=== PATIENT | female | born 1965 | race African-American/Black ===

== ENCOUNTER 2017-08-16 18:43 | Emergency (ER) | payer MEDICARE, MEDICAID ==
--- NOTE | 2017-08-16 19:10 | ER Document Report ---
ED Dialysis Cath/Shunt Problem - General Chief Complaint: Shoulder Pain Stated Complaint: GENERAL WEAKNESS Time Seen by Provider: 08/16/17 19:03 Mode of Arrival: Medic Information source: Patient TRAVEL OUTSIDE OF THE [place] IN LAST 30 DAYS: No - HPI Patient complains to provider of: UNCONTROLLED BLEEDING FROM DIALYSIS FISTULA Onset: Just prior to arrival Onset/Duration: Sudden Context: Patient states she finished 3 hours of dialysis treatment without incident, then as she was departing the facility the fistula access site began bleeding. Dialysis clinic staff applied a bandage with pressure clamp and sent patient to the emergency department. Hemo-Dialysis Treatment Today: Yes Associated symptoms: None Exacerbated by: Denies Relieved by: Denies Similar symptoms previously: Yes - NOT RECENT Recently seen / treated by doctor: Yes - Related Data Allergies/Adverse Reactions: aspirin [Aspirin] Allergy (Severe, Verified 10/20/14 19:12) Hives doxycycline [Doxycycline] Allergy (Severe, Verified 10/20/14 19:12) swelling latex [Latex] Allergy (Severe, Verified 10/20/14 19:12) rash NSAIDS (Non-Steroidal Anti-Inflamma [Nsaids] Allergy (Severe, Verified 10/20/14 19:12) Hives Penicillins Allergy (Severe, Verified 10/20/14 19:12) coma x 7 days Sulfa (Sulfonamide Antibiotics) Allergy (Severe, Verified 10/20/14 19:12) swelling Past Medical History - General Information source: Patient - Social History Smoking Status: Unknown if Ever Smoked Cigarette use (# per day): No Chew tobacco use (# tins/day): No Smoking Education Provided: No Frequency of alcohol use: None Drug Abuse: None Lives with: Family Family History: Reviewed & Not Pertinent - Past Medical History Cardiac Medical History: Reports: Hx Atrial Fibrillation, Hx Hypertension - meds 12 yrs Denies: Hx Coronary Artery Disease, Hx Heart Attack Pulmonary Medical History: Reports: Hx Asthma - occas inhaler, Hx Bronchitis, Hx Pneumonia - 2011 Denies: Hx COPD Neurological Medical History: Reports: None. Denies: Hx Cerebrovascular Accident, Hx Seizures Endocrine Medical History: Reports: None Renal/ Medical History: Reports: Hx End Stage Renal Disease, Hx Hemodialysis Malignancy Medical History: Reports: None GI Medical History: Reports: None Musculoskeltal Medical History: Reports Hx Arthritis - rt knee Psychiatric Medical History: Reports: None Past Surgical History: Reports: Hx Vascular Surgery - Immunizations Hx Diphtheria, Pertussis, Tetanus Vaccination: No Hx Pneumococcal Vaccination: 08/08/11 Review of Systems - Review of Systems Constitutional: No symptoms reported EENT: No symptoms reported Cardiovascular: No symptoms reported Respiratory: No symptoms reported Gastrointestinal: No symptoms reported Genitourinary: No symptoms reported Female Genitourinary: Post menopausal Musculoskeletal: No symptoms reported Skin: No symptoms reported Hematologic/Lymphatic: Easy bleeding Neurological/Psychological: No symptoms reported Physical Exam - Vital signs Interpretation: Normal. No: Hypotensive, Tachycardic, Tachypneic - General General appearance: Appears well, Alert In distress: None - HEENT Head: Normocephalic Eyes: Normal Conjunctiva: Normal Ears: Normal Nasal: Normal Mouth/Lips: Normal Mucous membranes: Normal - Respiratory Respiratory status: No respiratory distress - Cardiovascular Rhythm: Irregularly irregular - Abdominal Inspection: Obese - Extremities General upper extremity: No: Normal inspection - SCARS FROM PREVIOUS DIALYSIS FISTULAE, PRESSURE CLAMP/BANDAGE LEFT ARM, BLEEDING RESUMES WHEN PRESSURE IS REMOVED. Arm: Other - DIALYSIS FISTULA BLEEDS PROFUSELY WHEN CLAMP IS RELEASED. RECURRENT BLEEDING AFTER 15 MINUTES CONTINUOUS ONE-FINGER PRESSURE. - Neurological Neuro grossly intact: Yes Cognition: Normal Orientation: AAOx4 - Psychological Associated symptoms: Normal affect, Normal mood - Skin Skin Temperature: Warm Skin Moisture: Dry Skin Color: Normal Skin Turgor: Elastic Course - Consults DR. DURAND Time consulted: 19:18 Consulted provider: will come to ER Discharge - Discharge Clinical Impression: Complication of arteriovenous dialysis fistula Qualifiers: Encounter type: initial encounter Qualified Code(s): T82.9XXA - Unspecified complication of cardiac and vascular prosthetic device, implant and graft, initial encounter Condition: Stable Disposition: HOME, SELF-CARE Additional Instructions: CONTINUE USUAL MEDICATIONS. AVOID EXCESSIVE USE OF LEFT ARM. FOLLOW UP TUESDAY FOR YOUR USUAL DIALYSIS TREATMENT. RETURN TO E.R. IF PROBLEMS.
[2017-08-16] MEDS ORDERED: LIDOCAINE 1% INJ-PF (10 MG/ML) 30 ML SDV INJ ONE (19:19)
--- NOTE | 2017-08-16 20:19 | OPERATIVE REPORT E ---
Operative Report NAME: ÁNGEL COKER : 1965 AGE: 51Y DATE OF SURGERY: 08/16/2017 ROOM: PREOPERATIVE DIAGNOSIS: Bleeding from fistula graft post hemodialysis this afternoon. POSTOPERATIVE DIAGNOSIS: Bleeding from fistula graft post hemodialysis this afternoon. PROCEDURE: Suture ligature of a bleeder from the fistula graft. SURGEON: TANYA DURAND M.D. ANESTHESIA: Local ESTIMATED BLOOD LOSS: About 20 cc. INDICATIONS: This is a 61-year-old female on hemodialysis. She had bleeding from the left upper arm fistula graft after hemodialysis today. The patient came to the ER with a pressure clamp on the bleeder site. DESCRIPTION OF PROCEDURE: The clamp was removed, and there was oozing noted. The left upper arm was then prepped and draped in the usual sterile fashion. Local anesthesia infiltrated along the bleeder site. Next, a couple of sutures using 4-0 nylon were used, but there was still bleeding. Because of this, a 4-0 Prolene suture was asked to be taken from the OR. Meantime, there was gentle pressure on the bleeding area while waiting for the suture. Next, as soon as the suture came, 4-0 Prolene was used to put a [id number] suture on the bleeding area. This stopped the bleeding nicely. A Band-Aid was then placed over the wound site, or bleeder site. The patient tolerated the procedure well. DICTATING PHYSICIAN: TANYA DURAND M.D. [id number] PHY#: [id number] ID: [id number] JOB#: [id number] ACCT: [id number] cc:TANYA DURAND M.D. >
[2017-08-16 20:51] VITALS: BP 145/72
== END 2017-08-16 20:35 | disposition home or self-care (01) ==
LOC: ER 18:43
DX: T82.9XXA Unspecified complication of cardiac and vascular prosthetic device, implant and graft, initial encounter (principal); M25.519 Pain in unspecified shoulder; R53.1 Weakness
CPT/HCPCS: 99284; J3490

== ENCOUNTER → 2017-10-05 | Outpatient (CLI) | payer MEDICARE, MEDICAID ==
--- NOTE | 2017-10-05 17:35 | WOMENS IMAGING REPORT ---
EXAM DESCRIPTION: BILAT DIAGNOSTIC MAMMO W/CAD; U/S BREAST UNILAT LIMITED COMPLETED DATE/TIME: 10/05/2017 9:07 am; 10/05/2017 10:18 am REASON FOR STUDY: UNSPECIFED LUMP; N63.21; BILATERAL BREAST LUMPS N63.10 UNSPECIFIED LUMP IN THE RI GHT BREAST, UNSPECIFIED GENOVEVA N63.20 UNSPECIFIED LUMP IN THE LEFT BREAST, UNSPECIFIED QUAD N63.21 UNS PECIFIED LUMP IN THE LEFT BREAST, UPPER OUTER QUAD COMPARISON: Baseline study TECHNIQUE: Standard craniocaudal and mediolateral oblique views of each breast recorded using A [employer] l acquisition. Bilateral 90 mediolateral views were obtained. Left breast cone compression retroareolar region. Bilateral breast ultrasound was also performed. LIMITATIONS: None. FINDINGS: RIGHT BREAST MASSES: No suspicious masses. CALCIFICATIONS: No suspicious calcifications. Diffuse vascular calcifications are present. Multiple peripherally calcified oil cysts are present. ARCHITECTURAL DISTORTION: None. DEVELOPING DENSITY: None. ASYMMETRY: None noted. OTHER: No other significant findings. LEFT BREAST MASSES: No suspicious masses. CALCIFICATIONS: No suspicious calcifications. Diffuse vascular calcifications are present ARCHITECTURAL DISTORTION: None. DEVELOPING DENSITY: None. ASYMMETRY: None noted. OTHER: No other significant finding. Read with the assistance of CAD: .[facility] - R2 Cenova Version 1.3 .[facility] Imaging - R2 Cenova Version 1.3 .[facility] Imaging - R2 Cenova Version 2.4 .[facility] - R2 Cenova Version 2.4 .[facility] - R2 Side Door Worker Version 9.2 Bilateral breast ultrasound: On the right side, patient indicates a palpable abnormality in the 12 o'clock position. In the area indicated by the patient, just deep to the skin surface an anechoic simple cyst 5 mm in diameters pre sent. Patient indicates a palpable abnormality in the left breast periareolar region. Ultrasound of this a jacques demonstrates no focal findings. No cysts. No masses. No worrisome acoustic absorption IMPRESSION: No mammographic or sonographic evidence for malignancy bilaterally BREAST DENSITY: a. The breasts are almost entirely fatty. BIRAD: 2 Benign findings. RECOMMENDATION: RECOMMENDED FOLLOW UP: Please continue yearly bilateral screening mammography in Sep or October 2018 SPECIFIC INTERVENTION/IMAGING/CONSULTATION RECOMMENDED:No additional intervention/ imaging/consultati on needed at this time. COMMUNICATION:Patient notified by letter COMMENT: The patient has been notified of the results by letter per MQSA requirements. Additional no tification policies are in place for contacting patient with suspicious or incomplete findings. Quality ID #225: The [employer] recommends an annual screening mammogram for women aged 40 years or over. This facility utilizes a reminder system to ensure that all patients receive reminder letters, and/or direct phone calls for appointments. This includes reminders for routine scr eening mammograms, diagnostic mammograms, or other Breast Imaging Interventions when appropriate. Th is patient will be placed in the appropriate reminder system. The [employer] (ACR) has developed recommendations for screening MRI of the breast s in certain patient populations, to be used in conjunction with mammography. Breast MRI surveillanc e may be appropriate for women with more than 20% lifetime risk of developing breast cancer as deter mined by genetic testing, significant family history of the disease, or history of mantle radiation f or Hodgkins Disease. ACR Practice Guidelines 2008. TECHNICAL DOCUMENTATION: FINDING NUMBER: (1) ASSESSMENT: (1) JOB ID: [id number] D [employer] nv- All Rights Reserved Reading location - IP/workstation name: [facility]
--- NOTE | 2017-10-05 17:35 | WOMENS IMAGING REPORT ---
EXAM DESCRIPTION: BILAT DIAGNOSTIC MAMMO W/CAD; U/S BREAST UNILAT LIMITED COMPLETED DATE/TIME: 10/05/2017 9:07 am; 10/05/2017 10:18 am REASON FOR STUDY: UNSPECIFED LUMP; N63.21; BILATERAL BREAST LUMPS N63.10 UNSPECIFIED LUMP IN THE RI GHT BREAST, UNSPECIFIED GENOVEVA N63.20 UNSPECIFIED LUMP IN THE LEFT BREAST, UNSPECIFIED QUAD N63.21 UNS PECIFIED LUMP IN THE LEFT BREAST, UPPER OUTER QUAD COMPARISON: Baseline study TECHNIQUE: Standard craniocaudal and mediolateral oblique views of each breast recorded using IntegraGena l acquisition. Bilateral 90 mediolateral views were obtained. Left breast cone compression retroareolar region. Bilateral breast ultrasound was also performed. LIMITATIONS: None. FINDINGS: RIGHT BREAST MASSES: No suspicious masses. CALCIFICATIONS: No suspicious calcifications. Diffuse vascular calcifications are present. Multiple peripherally calcified oil cysts are present. ARCHITECTURAL DISTORTION: None. DEVELOPING DENSITY: None. ASYMMETRY: None noted. OTHER: No other significant findings. LEFT BREAST MASSES: No suspicious masses. CALCIFICATIONS: No suspicious calcifications. Diffuse vascular calcifications are present ARCHITECTURAL DISTORTION: None. DEVELOPING DENSITY: None. ASYMMETRY: None noted. OTHER: No other significant finding. Read with the assistance of CAD: .[facility] - R2 Cenova Version 1.3 .[facility] Imaging - R2 Cenova Version 1.3 .[facility] Imaging - R2 Cenova Version 2.4 .[facility] - R2 Cenova Version 2.4 .[facility] - R2 Analytics Senior Manager Version 9.2 Bilateral breast ultrasound: On the right side, patient indicates a palpable abnormality in the 12 o'clock position. In the area indicated by the patient, just deep to the skin surface an anechoic simple cyst 5 mm in diameters pre sent. Patient indicates a palpable abnormality in the left breast periareolar region. Ultrasound of this a jacques demonstrates no focal findings. No cysts. No masses. No worrisome acoustic absorption IMPRESSION: No mammographic or sonographic evidence for malignancy bilaterally BREAST DENSITY: a. The breasts are almost entirely fatty. BIRAD: 2 Benign findings. RECOMMENDATION: RECOMMENDED FOLLOW UP: Please continue yearly bilateral screening mammography in Sep or October 2018 SPECIFIC INTERVENTION/IMAGING/CONSULTATION RECOMMENDED:No additional intervention/ imaging/consultati on needed at this time. COMMUNICATION:Patient notified by letter COMMENT: The patient has been notified of the results by letter per MQSA requirements. Additional no tification policies are in place for contacting patient with suspicious or incomplete findings. Quality ID #[id number]: The [employer] recommends an annual screening mammogram for women aged 40 years or over. This facility utilizes a reminder system to ensure that all patients receive reminder letters, and/or direct phone calls for appointments. This includes reminders for routine scr eening mammograms, diagnostic mammograms, or other Breast Imaging Interventions when appropriate. Th is patient will be placed in the appropriate reminder system. The [employer] (ACR) has developed recommendations for screening MRI of the breast s in certain patient populations, to be used in conjunction with mammography. Breast MRI surveillanc e may be appropriate for women with more than 20% lifetime risk of developing breast cancer as deter mined by genetic testing, significant family history of the disease, or history of mantle radiation f or Hodgkins Disease. ACR Practice Guidelines 2008. TECHNICAL DOCUMENTATION: FINDING NUMBER: (1) ASSESSMENT: (1) JOB ID: [id number] [employer]ault- All Rights Reserved Reading location - IP/workstation name: [facility]
--- NOTE | 2017-10-05 17:35 | WOMENS IMAGING REPORT ---
EXAM DESCRIPTION: BILAT DIAGNOSTIC MAMMO W/CAD; U/S BREAST UNILAT LIMITED COMPLETED DATE/TIME: 10/05/2017 9:07 am; 10/05/2017 10:18 am REASON FOR STUDY: UNSPECIFED LUMP; N63.21; BILATERAL BREAST LUMPS N63.10 UNSPECIFIED LUMP IN THE RI GHT BREAST, UNSPECIFIED GENOVEVA N63.20 UNSPECIFIED LUMP IN THE LEFT BREAST, UNSPECIFIED QUAD N63.21 UNS PECIFIED LUMP IN THE LEFT BREAST, UPPER OUTER QUAD COMPARISON: Baseline study TECHNIQUE: Standard craniocaudal and mediolateral oblique views of each breast recorded using MiniBrakea l acquisition. Bilateral 90 mediolateral views were obtained. Left breast cone compression retroareolar region. Bilateral breast ultrasound was also performed. LIMITATIONS: None. FINDINGS: RIGHT BREAST MASSES: No suspicious masses. CALCIFICATIONS: No suspicious calcifications. Diffuse vascular calcifications are present. Multiple peripherally calcified oil cysts are present. ARCHITECTURAL DISTORTION: None. DEVELOPING DENSITY: None. ASYMMETRY: None noted. OTHER: No other significant findings. LEFT BREAST MASSES: No suspicious masses. CALCIFICATIONS: No suspicious calcifications. Diffuse vascular calcifications are present ARCHITECTURAL DISTORTION: None. DEVELOPING DENSITY: None. ASYMMETRY: None noted. OTHER: No other significant finding. Read with the assistance of CAD: .[facility] - R2 Cenova Version 1.3 .[facility] Imaging - R2 Cenova Version 1.3 .[facility] Imaging - R2 Cenova Version 2.4 .[facility] - R2 Cenova Version 2.4 .[facility] - R2 C Unix Developer Version 9.2 Bilateral breast ultrasound: On the right side, patient indicates a palpable abnormality in the 12 o'clock position. In the area indicated by the patient, just deep to the skin surface an anechoic simple cyst 5 mm in diameters pre sent. Patient indicates a palpable abnormality in the left breast periareolar region. Ultrasound of this a jacques demonstrates no focal findings. No cysts. No masses. No worrisome acoustic absorption IMPRESSION: No mammographic or sonographic evidence for malignancy bilaterally BREAST DENSITY: a. The breasts are almost entirely fatty. BIRAD: 2 Benign findings. RECOMMENDATION: RECOMMENDED FOLLOW UP: Please continue yearly bilateral screening mammography in Sep or October 2018 SPECIFIC INTERVENTION/IMAGING/CONSULTATION RECOMMENDED:No additional intervention/ imaging/consultati on needed at this time. COMMUNICATION:Patient notified by letter COMMENT: The patient has been notified of the results by letter per MQSA requirements. Additional no tification policies are in place for contacting patient with suspicious or incomplete findings. Quality ID #225: The [employer] recommends an annual screening mammogram for women aged 40 years or over. This facility utilizes a reminder system to ensure that all patients receive reminder letters, and/or direct phone calls for appointments. This includes reminders for routine scr eening mammograms, diagnostic mammograms, or other Breast Imaging Interventions when appropriate. Th is patient will be placed in the appropriate reminder system. The [employer] (ACR) has developed recommendations for screening MRI of the breast s in certain patient populations, to be used in conjunction with mammography. Breast MRI surveillanc e may be appropriate for women with more than 20% lifetime risk of developing breast cancer as deter mined by genetic testing, significant family history of the disease, or history of mantle radiation f or Hodgkins Disease. ACR Practice Guidelines 2008. TECHNICAL DOCUMENTATION: FINDING NUMBER: (1) ASSESSMENT: (1) JOB ID: [id number] [employer]- All Rights Reserved Reading location - IP/workstation name: [facility]
== END ==
LOC: WI 08:48
PROVIDERS: ATTEND Physician Assistant Medical
DX: N63.10 Unspecified lump in the right breast, unspecified quadrant (principal); N63.21 Unspecified lump in the left breast, upper outer quadrant
CPT/HCPCS: 76642; 77066

== ENCOUNTER 2017-10-15 01:04 | Emergency (ER) | payer MEDICARE, MEDICAID ==
[2017-10-15] MEDS ORDERED: MAG HYDROX/AL HYDROX/SIMETH SUSP 30 ML UDCUP PO ONE (02:33)
[2017-10-15] MEDS ORDERED: LIDOCAINE 2% VISCOUS SOLN 20 ML UDCUP PO ONE (02:33)
[2017-10-15] MEDS ORDERED: METOCLOPRAMIDE HCL ORAL SOLN 10 MG/10 ML UDCUP PO ONE (02:33)
--- NOTE | 2017-10-15 02:34 | ER Document Report ---
ED General - General Chief Complaint: Shortness Of Breath Stated Complaint: TROUBLE BREATHING Time Seen by Provider: 10/15/17 02:20 Mode of Arrival: Ambulatory Information source: Patient Notes: 52 yr old female history of gastric reflux presents with complaints of epigastric abdominal pain. Patient denies any fevers or chills admits to nausea and vomiting. Patient notes it is painful on the middle and left side, patient's initial concern was for her gallbladder shortness of breath Patient has never had issues with gallbladder before TRAVEL OUTSIDE OF THE [place] IN LAST 30 DAYS: No - HPI Onset: Just prior to arrival Onset/Duration: Sudden Quality of pain: Sharp Severity: Moderate Pain Level: 2 Associated symptoms: Nausea, Vomiting, Shortness of breath Exacerbated by: Denies Relieved by: Denies Similar symptoms previously: No Recently seen / treated by doctor: No - Related Data Allergies/Adverse Reactions: aspirin [Aspirin] Allergy (Severe, Verified 10/15/17 01:06) Hives doxycycline [Doxycycline] Allergy (Severe, Verified 10/15/17 01:06) swelling latex [Latex] Allergy (Severe, Verified 10/15/17 01:06) rash NSAIDS (Non-Steroidal Anti-Inflamma [Nsaids] Allergy (Severe, Verified 10/15/17 01:06) Hives Penicillins Allergy (Severe, Verified 10/15/17 01:06) coma x 7 days Sulfa (Sulfonamide Antibiotics) Allergy (Severe, Verified 10/15/17 01:06) swelling Past Medical History - Social History Smoking Status: Never Smoker Cigarette use (# per day): No Chew tobacco use (# tins/day): No Smoking Education Provided: No Family History: Reviewed & Not Pertinent - Past Medical History Cardiac Medical History: Reports: Hx Atrial Fibrillation, Hx Hypertension - meds 13 yrs Denies: Hx Coronary Artery Disease, Hx Heart Attack Pulmonary Medical History: Reports: Hx Asthma - occas inhaler, Hx Bronchitis, Hx Pneumonia - 2011 Denies: Hx COPD Neurological Medical History: Denies: Hx Cerebrovascular Accident, Hx Seizures Renal/ Medical History: Reports: Hx End Stage Renal Disease, Hx Hemodialysis. Denies: Hx Peritoneal Dialysis Musculoskeltal Medical History: Reports Hx Arthritis - rt knee Past Surgical History: Reports: Hx Vascular Surgery - Immunizations Hx Diphtheria, Pertussis, Tetanus Vaccination: No Hx Pneumococcal Vaccination: 08/08/11 Review of Systems - Review of Systems Notes: REVIEW OF SYSTEMS: CONSTITUTIONAL : Denies fever, chills, or sweats. Denies recent illness. EENT: Denies eye, ear, throat, or mouth pain or symptoms. Denies nasal or sinus congestion or discharge. Denies throat, tongue, or mouth swelling or difficulty swallowing. CARDIOVASCULAR: Denies chest pain. Denies palpitations or racing or irregular heart beat. Denies ankle edema. RESPIRATORY: Admits shortness breath GASTROINTESTINAL: Admits to epigastric abdominal pain GENITOURINARY: Denies difficulty urinating, painful urination, burning, frequency, blood in urine, or discharge. FEMALE GENITOURINARY: Denies vaginal bleeding, heavy or abnormal periods, irregular periods. Denies vaginal discharge or odor. MUSCULOSKELETAL: Denies back or neck pain or stiffness. Denies joint pain or swelling. SKIN: Denies rash, lesions or sores. HEMATOLOGIC : Denies easy bruising or bleeding. LYMPHATIC: Denies swollen, enlarged glands. NEUROLOGICAL: Denies confusion or altered mental status. Denies passing out or loss of consciousness. Denies dizziness or lightheadedness. Denies headache. Denies weakness or paralysis or loss of use of either side. Denies problems with gait or speech. Denies sensory loss, numbness, or tingling. Denies seizures. PSYCHIATRIC: Denies anxiety or stress. Denies depression, suicidal ideation, or homicidal ideation. ALL OTHER SYSTEMS REVIEWED AND NEGATIVE. PHYSICAL EXAMINATION: GENERAL: Well-appearing, well-nourished and in moderate distress HEAD: Atraumatic, normocephalic. EYES: Pupils equal round and reactive to light, extraocular movements intact, conjunctiva are normal. ENT: Nares patent, oropharynx clear without exudates. Moist mucous membranes. NECK: Normal range of motion, supple without lymphadenopathy LUNGS: Breath sounds clear to auscultation bilaterally and equal. No wheezes rales or rhonchi. HEART: Regular rate and rhythm without murmurs ABDOMEN: Soft, tender in epigastric region no rebound no guarding Female : deferred Musculoskeletal: Normal range of motion, no pitting or edema. No cyanosis. NEUROLOGICAL: Cranial nerves grossly intact. Normal speech, normal gait. Normal sensory, motor exams PSYCH: Normal mood, normal affect. SKIN: Warm, Dry, normal turgor, no rashes or lesions noted. Dictation was performed using [employer] 1 recognition software Physical Exam - Vital signs Vitals: Temp Pulse Resp BP Pulse Ox 98.7 F 56 L 20 171/74 H 98 10/15/17 01:16 10/15/17 01:16 10/15/17 01:16 10/15/17 01:16 10/15/17 01:16 Course - Re-evaluation Re-evalutation: 10/15/17 03:05 Patient given GI cocktail due to epigastric abdominal pain which is probably due to an ulceration, she is noted to have vomited this back, 10/15/17 04:12 pt vomited after gi cocktail, concern for obstruction, ct ordered without contrast due ot hx of dialysis, blood hemolysed 10/15/17 05:12 Pt noted to have a sbo, spoke with Dr Swain for admission but was notified that we cannot admit due ot ened for dialysis Ng tube ordered 10/15/17 06:21 Delfino Harrington called back, it appears the hospitalist requests for surgery to take the patient surgery has been paged multiple times - Vital Signs Vital signs: Temp Pulse Resp BP Pulse Ox 98.7 F 56 L 20 171/74 H 98 10/15/17 01:16 10/15/17 01:16 10/15/17 01:16 10/15/17 01:16 10/15/17 01:16 - Laboratory Result Diagrams: 10/15/17 04:00 10/15/17 05:02 Laboratory results interpreted by me: 10/15/17 10/15/17 04:00 05:02 RBC 3.61 L Hgb 10.8 L Hct 33.2 L RDW 17.2 H Seg Neutrophils % 78.6 H Lymphocytes % 11.3 L Potassium 5.3 H BUN 30 H Creatinine 8.51 H Est GFR ( Amer) 6 L Est GFR (Non-Af Amer) 5 L Direct Bilirubin 0.6 H Discharge - Discharge Clinical Impression: SBO (small bowel obstruction) CKD (chronic kidney disease) Qualifiers: Chronic kidney disease stage: stage 5, not on chronic dialysis Qualified Code(s ): N18.5 - Chronic kidney disease, stage 5 Condition: Stable Disposition: [facility] Referrals: AURELIANO FORD PA-C [Primary Care Provider] - Follow up as needed
[2017-10-15] MEDS ORDERED: FENTANYL CITRATE INJ/PF 100 MCG/2 ML AMPUL IV ONE ×3 (03:01→10:08)
[2017-10-15] MEDS ORDERED: ONDANSETRON HCL INJ/PF 4 MG/2 ML SDV IV ONE ×2 (03:01→09:58)
[2017-10-15 04:21] LABS: ABSOLUTE EOSINOPHILS # (AUTO) 0.2 10^3/uL (0.0-0.6); ABSOLUTE MONOCYTES (AUTO) 0.6 10^3/uL (0.1-1.4); ABSOLUTE NEUT (AUTO) 6.9 10^3/uL (1.7-8.2); BASOPHILS % (AUTO) 0.4 % (0-2); EOSINOPHILS % (AUTO) 2.7 % (0-6); HEMATOCRIT 33.2 % (36.0-47.0); HEMOGLOBIN 10.8 g/dL (12.0-15.5); LYMPHOCYTES % (AUTO) 11.3 % (13-45); MEAN CORPUSCULAR HEMOGLOBIN 30.1 pg (27.0-33.4); MEAN CORPUSCULAR HGB CONC 32.7 g/dL (32.0-36.0); MEAN CORPUSCULAR VOLUME 92 fl (80-97); PLATELET COUNT 347 10^3/uL (150-450); RED BLOOD COUNT 3.61 10^6/uL (3.72-5.28); RED CELL DISTRIBUTION WIDTH 17.2 % (11.5-14.0); SEGMENTED NEUTROPHILS % (AUTO) 78.6 % (42-78); TOTAL CELLS COUNTED % (AUTO) 100 %; WHITE BLOOD COUNT 8.7 10^3/uL (4.0-10.5)
--- NOTE | 2017-10-15 04:46 | RADIOLOGY REPORT (SQ) ---
EXAM DESCRIPTION: CT ABDOMEN AND PELVIS WITHOUT CONTRAST CLINICAL HISTORY: epigastric pain COMPARISON: None Available. TECHNIQUE: CT of the abdomen and pelvis without IV contrast. FINDINGS: Abdomen: The liver has normal size and density. No calcified gallstones. The spleen, pancreas, and adrenal glands are unremarkable. Bilateral renal atrophy and multiple bilateral hypodense exophytic structures likely representing cysts. Punctate bilateral nonobstructing renal calculi as well as vascular atherosclerotic calcifications in the kidneys. No hydronephrosis or obstructing ureteral calculi. Aortoiliac atherosclerosis. IVC is unremarkable. No free intraperitoneal air. The stomach and duodenum have normal course. Pelvis: Uterus is not enlarged. Urinary bladder is unremarkable. No free pelvic fluid or lymphadenopathy. Scattered diverticula of the colon without pericolic fat stranding. Dilated loops of small bowel in the left abdomen with transition to decompressed loops of small bowel. No evidence of appendicitis. Transition point is in the lower mid abdomen best seen on image #62, series 3. The visualized lung bases are clear. Cardiomegaly. No destructive bone lesions identified. Degenerative change of the spine. DLP: 997.22 mGy-cm IMPRESSION: 1. Findings compatible with small bowel obstruction with transition point in the mid lower abdomen. 2. Cardiomegaly. 3. Bilateral renal atrophy. 4. Diverticulosis without evidence of diverticulitis. This exam was performed according to our departmental dose-optimization program, which includes automated exposure control, adjustment of the mA and/or kV according to patient size and/or use of iterative reconstruction technique.
[2017-10-15 05:27] LABS: ALANINE AMINOTRANSFERASE 26 U/L (9-52); ALBUMIN 3.7 g/dL (3.5-5.0); ALKALINE PHOSPHATASE 104 U/L (38-126); ANION GAP 17 (5-19); ASPARTATE AMINO TRANSFERASE 35 U/L (14-36); BILIRUBIN,DIRECT 0.6 mg/dL (0.0-0.4); BILIRUBIN,TOTAL 0.6 mg/dL (0.2-1.3); BLOOD UREA NITROGEN 30 mg/dL (7-20); CALCIUM 8.9 mg/dL (8.4-10.2); CARBON DIOXIDE 24 mmol/L (22-30); CHLORIDE 100 mmol/L (98-107); GLUCOSE 85 mg/dL (75-110); LIPASE 136.3 U/L (23-300); POTASSIUM 5.3 mmol/L (3.6-5.0); SODIUM 141.4 mmol/L (137-145); TOTAL PROTEIN 7.2 g/dL (6.3-8.2)
[2017-10-15] MEDS ORDERED: LORAZEPAM INJ 2 MG/1 ML VIAL IV ONE (06:05)
[2017-10-15] MEDS ORDERED: BENZOCAINE 20% AEROSOL SPRAY 60 GM TP ONE (06:56)
[2017-10-15] MEDS ORDERED: NORMAL SALINE 1000 ML 1,000 ML IV ONE (08:15)
--- NOTE | 2017-10-15 08:21 | RADIOLOGY REPORT (SQ) ---
EXAM DESCRIPTION: CHEST SINGLE VIEW COMPLETED DATE/TIME: 10/15/2017 7:30 am REASON FOR STUDY: post NG COMPARISON: 06/07/2017. NUMBER OF VIEWS: One view. TECHNIQUE: Single frontal radiographic view of the chest acquired. LIMITATIONS: None. FINDINGS: LUNGS AND PLEURA: Minimal subsegmental atelectasis left mid lung zone. Lungs otherwise cl ear. MEDIASTINUM AND HILAR STRUCTURES: Uncoiled aorta, stable. HEART AND VASCULAR STRUCTURES: Stable heart without failure evident. Slight prominence of the centra l vascularity looks stable. BONES: No acute findings. HARDWARE: There is a nasogastric tube which loops into the mid mediastinum with tip back cranially an d out of the field of view. This needs to be removed and replaced. OTHER: No other significant finding. IMPRESSION: Nasogastric tube not appropriately positioned. The tip appears to course back towards t he head out of the field of view. The should be removed and replaced. TECHNICAL DOCUMENTATION: JOB ID: [id number] [employer]- All Rights Reserved Reading location - IP/workstation name: [email or web address]
[2017-10-15] MEDS ORDERED: MORPHINE SULFATE 10 MG/ML INJ IV ONE (09:58)
[2017-10-15 10:16] VITALS: BP 127/99
== END 2017-10-15 10:40 | disposition short-term general hospital (02) ==
LOC: ER 01:04
DX: K56.609 Unspecified intestinal obstruction, unspecified as to partial versus complete obstruction (principal); I12.0 Hypertensive chronic kidney disease with stage 5 chronic kidney disease or end stage renal disease; N18.5 Chronic kidney disease, stage 5; J45.909 Unspecified asthma, uncomplicated; R10.13 Epigastric pain; R11.2 Nausea with vomiting, unspecified; R06.02 Shortness of breath; Z88.6 Allergy status to analgesic agent; Z88.1 Allergy status to other antibiotic agents; Z91.040 Latex allergy status; Z88.8 Allergy status to other drugs, medicaments and biological substances; Z88.0 Allergy status to penicillin; Z88.2 Allergy status to sulfonamides
CPT/HCPCS: 99285; 96361; 96374; 96375; 36415; 83690; 85025; 80053; 71045; 74176; J3490 ×2; J3010; A9270; J2060; J2405; J7030

== ENCOUNTER → 2017-11-09 | Outpatient (CLI) | payer MEDICARE, MEDICAID ==
[~2017-11-09] MED LIST: ALBUTEROL SULFATE 0.083% NEB 2.5 MG/3 ML AMPUL NEB ONE
--- NOTE | 2017-11-09 17:03 | Pulmonary Function Test ---
Pulmonary Function Test Date of Procedure:: 11/09/17 INDICATION:: Dyspnea Referring Provider: Dr. Simeon Supervisor Finishing: Gina Rebolledo [employer] - Report Spirometry: FVC 1.681 L 56% postbronchodilator 1.97 L 61% FEV1 1.35 L 51% postbronchodilator 1.49 L 56% FEV1/FVC % 75 postbronchodilator 76 predicted 83 FEF 25-75% 1.05 36% postbronchodilator 1.2 142% Lung Volume: Total lung capacity 3.29 L 64% Vital capacity 1.93 L 60% Inspiratory capacity 1.61 FRC N2 1.68 73% ERV 0.15 RV 1.36 73% RV/TLC % 41 Diffusion Capactity: DLCO 13.2 50% DLCO/VA 3.78 94% Impression: Moderate obstructive ventilatory defect with insignificant response to bronchodilator therapy. This in and of itself does not preclude a clinical trial of bronchodilator therapy. Mild restrictive ventilatory defect.( Restrictive defects may mask the degree of obstruction) no evidence for hyperinflation or air trapping. Moderate decrease in diffusion capacity.
== END ==
LOC: RT 08:10
PROVIDERS: ATTEND Internal Medicine Pulmonary Disease
DX: J45.40 Moderate persistent asthma, uncomplicated (principal)
CPT/HCPCS: 94729; 94060; A9270

== ENCOUNTER → 2018-01-10 | Outpatient (CLI) | payer MEDICARE, MEDICAID ==
[2018-01-10 18:41] LABS: INTERNATIONAL RATION (INR) 1.81; PROTHROMBIN TIME 21.9 SEC (11.4-15.4)
== END ==
LOC: SD 15:46
PROVIDERS: ATTEND Nurse Practitioner Family
DX: I48.0 Paroxysmal atrial fibrillation (principal)
CPT/HCPCS: 85610

== ENCOUNTER → 2018-05-31 | Outpatient (CLI) | payer MEDICARE, MEDICAID ==
--- NOTE | 2018-06-01 13:45 | WOMENS IMAGING REPORT ---
EXAM DESCRIPTION: BILAT DIAGNOSTIC MAMMO W/CAD; U/S BREAST UNILAT LIMITED COMPLETED DATE/TIME: 05/31/2018 10:39 am; 05/31/2018 11:28 am REASON FOR STUDY: RIGHT BREAST LUMP; RT BREAST N63.11 N63.11 UNSPECIFIED LUMP IN THE RIGHT BREAST, UPPER OUTER GENOVEVA COMPARISON: 10/05/2017 bilateral mammography TECHNIQUE: Standard craniocaudal and mediolateral oblique views of each breast recorded using digita l acquisition. Additional right breast 90 mediolateral view. Right breast ultrasound was also performed. LIMITATIONS: None. FINDINGS: RIGHT BREAST MASSES: No suspicious masses. CALCIFICATIONS: No new or suspicious calcifications. ARCHITECTURAL DISTORTION: None. DEVELOPING DENSITY: None. ASYMMETRY: None noted. OTHER: A broad area of abnormal increased density of the right breast is present with thickening of t he coopers ligaments. Ill-defined borders. This is at the upper half right breast from the [address] position. This measures 10 x 10 cm in size mammographically. At ultrasound, there is ill-defined decreased echogenicity of the right breast in this area, without a discrete mass. Findings are worr isome for mastitis. Fat necrosis post trauma could have this appearance. A diffusely infiltrating n eoplasm is possible but considered less likely. Ultrasound-guided core biopsy of the abnormally hypo echoic area is recommended, with post biopsy clip placement. LEFT BREAST MASSES: No suspicious masses. CALCIFICATIONS: No new or suspicious calcifications. ARCHITECTURAL DISTORTION: None. DEVELOPING DENSITY: None. ASYMMETRY: None noted. OTHER: No other significant finding. Read with the assistance of CAD: .[facility] - R2 Cenova Version 1.3 .[facility] Imaging - R2 Cenova Version 1.3 .[facility] Imaging - R2 Cenova Version 2.4 .[facility] - R2 Cenova Version 2.4 .[facility] - R2 Spares Scheduler Version 9.2 Right breast ultrasound: There is ill-defined decreased echogenicity of the right upper half of the breast,without a discrete mass. Findings are worrisome for mastitis. Fat necrosis post trauma could have this appearance. A d iffusely infiltrating neoplasm is possible but considered less likely. Ultrasound-guided core biopsy of the abnormally hypoechoic area is recommended, with post biopsy clip placement. IMPRESSION: Ill-defined area of increased density in the upper half right breast without a discrete mass. This correlates with hypoechoic tissue at ultrasound. This could represent fat necrosis or ma stitis. Ultrasound-guided core biopsy post biopsy clip placement with follow-up two-view mammogram r ecommended. BREAST DENSITY: b. There are scattered areas of fibroglandular density. BIRAD: 4 Suspicious. Biopsy should be considered. RECOMMENDATION: RECOMMENDED FOLLOW UP: Ultrasound-guided core biopsy of the vague hypoechoic area up per half right breast recommended. SPECIFIC INTERVENTION/IMAGING/CONSULTATION RECOMMENDED:No additional intervention/ imaging/consultati on needed at this time. COMMUNICATION:Patient notified by letter COMMENT: The patient has been notified of the results by letter per SA requirements. Additional no tification policies are in place for contacting patient with suspicious or incomplete findings. Quality ID #[id number]: The [employer] recommends an annual screening mammogram for women aged 40 years or over. This facility utilizes a reminder system to ensure that all patients receive reminder letters, and/or direct phone calls for appointments. This includes reminders for routine scr eening mammograms, diagnostic mammograms, or other Breast Imaging Interventions when appropriate. Th is patient will be placed in the appropriate reminder system. The [employer] (ACR) has developed recommendations for screening MRI of the breast s in certain patient populations, to be used in conjunction with mammography. Breast MRI surveillanc e may be appropriate for women with more than 20% lifetime risk of developing breast cancer as deter mined by genetic testing, significant family history of the disease, or history of mantle radiation f or Hodgkins Disease. ACR Practice Guidelines 2008. TECHNICAL DOCUMENTATION: FINDING NUMBER: (1) ASSESSMENT: (1) JOB ID: [id number] [employer]- All Rights Reserved Reading location - IP/workstation name: [facility]
--- NOTE | 2018-06-01 13:45 | WOMENS IMAGING REPORT ---
EXAM DESCRIPTION: BILAT DIAGNOSTIC MAMMO W/CAD; U/S BREAST UNILAT LIMITED COMPLETED DATE/TIME: 05/31/2018 10:39 am; 05/31/2018 11:28 am REASON FOR STUDY: RIGHT BREAST LUMP; RT BREAST N63.11 N63.11 UNSPECIFIED LUMP IN THE RIGHT BREAST, UPPER OUTER GENOVEVA COMPARISON: 10/05/2017 bilateral mammography TECHNIQUE: Standard craniocaudal and mediolateral oblique views of each breast recorded using digita l acquisition. Additional right breast 90 mediolateral view. Right breast ultrasound was also performed. LIMITATIONS: None. FINDINGS: RIGHT BREAST MASSES: No suspicious masses. CALCIFICATIONS: No new or suspicious calcifications. ARCHITECTURAL DISTORTION: None. DEVELOPING DENSITY: None. ASYMMETRY: None noted. OTHER: A broad area of abnormal increased density of the right breast is present with thickening of t he coopers ligaments. Ill-defined borders. This is at the upper half right breast from the [address] position. This measures 10 x 10 cm in size mammographically. At ultrasound, there is ill-defined decreased echogenicity of the right breast in this area, without a discrete mass. Findings are worr isome for mastitis. Fat necrosis post trauma could have this appearance. A diffusely infiltrating n eoplasm is possible but considered less likely. Ultrasound-guided core biopsy of the abnormally hypo echoic area is recommended, with post biopsy clip placement. LEFT BREAST MASSES: No suspicious masses. CALCIFICATIONS: No new or suspicious calcifications. ARCHITECTURAL DISTORTION: None. DEVELOPING DENSITY: None. ASYMMETRY: None noted. OTHER: No other significant finding. Read with the assistance of CAD: .[facility] - R2 Cenova Version 1.3 .[facility] Imaging - R2 Cenova Version 1.3 .[facility] Imaging - R2 Cenova Version 2.4 .[facility] - R2 Cenova Version 2.4 .[facility] - R2 Gravity Meter Observer Version 9.2 Right breast ultrasound: There is ill-defined decreased echogenicity of the right upper half of the breast,without a discrete mass. Findings are worrisome for mastitis. Fat necrosis post trauma could have this appearance. A d iffusely infiltrating neoplasm is possible but considered less likely. Ultrasound-guided core biopsy of the abnormally hypoechoic area is recommended, with post biopsy clip placement. IMPRESSION: Ill-defined area of increased density in the upper half right breast without a discrete mass. This correlates with hypoechoic tissue at ultrasound. This could represent fat necrosis or ma stitis. Ultrasound-guided core biopsy post biopsy clip placement with follow-up two-view mammogram r ecommended. BREAST DENSITY: b. There are scattered areas of fibroglandular density. BIRAD: 4 Suspicious. Biopsy should be considered. RECOMMENDATION: RECOMMENDED FOLLOW UP: Ultrasound-guided core biopsy of the vague hypoechoic area up per half right breast recommended. SPECIFIC INTERVENTION/IMAGING/CONSULTATION RECOMMENDED:No additional intervention/ imaging/consultati on needed at this time. COMMUNICATION:Patient notified by letter COMMENT: The patient has been notified of the results by letter per SA requirements. Additional no tification policies are in place for contacting patient with suspicious or incomplete findings. Quality ID #[id number]: The [employer] recommends an annual screening mammogram for women aged 40 years or over. This facility utilizes a reminder system to ensure that all patients receive reminder letters, and/or direct phone calls for appointments. This includes reminders for routine scr eening mammograms, diagnostic mammograms, or other Breast Imaging Interventions when appropriate. Th is patient will be placed in the appropriate reminder system. The [employer] (ACR) has developed recommendations for screening MRI of the breast s in certain patient populations, to be used in conjunction with mammography. Breast MRI surveillanc e may be appropriate for women with more than 20% lifetime risk of developing breast cancer as deter mined by genetic testing, significant family history of the disease, or history of mantle radiation f or Hodgkins Disease. ACR Practice Guidelines 2008. TECHNICAL DOCUMENTATION: FINDING NUMBER: (1) ASSESSMENT: (1) JOB ID: [id number] [employer]- All Rights Reserved Reading location - IP/workstation name: [facility]
== END ==
LOC: WI 10:12
PROVIDERS: ATTEND Physician Assistant Medical
DX: N63.11 Unspecified lump in the right breast, upper outer quadrant (principal)
CPT/HCPCS: 76642; 77066

== ENCOUNTER → 2018-06-06 | Outpatient (CLI) | payer MEDICARE, MEDICAID ==
[2018-06-06 13:16] LABS: INTERNATIONAL RATION (INR) 1.66; PROTHROMBIN TIME 20.4 SEC (11.4-15.4)
== END ==
LOC: OD 11:58
PROVIDERS: ATTEND Nurse Practitioner Family
DX: I48.91 Unspecified atrial fibrillation (principal); Z51.81 Encounter for therapeutic drug level monitoring; Z79.01 Long term (current) use of anticoagulants
CPT/HCPCS: 36415; 85610

== ENCOUNTER → 2018-06-23 | Day surgery (SDC) | payer MEDICARE, MEDICAID ==
[~2018-06-23] MED LIST changes: -ALBUTEROL SULFATE 0.083% NEB 2.5 MG/3 ML AMPUL NEB ONE; +LIDOCAINE 1% INJ-PF (10 MG/ML) 30 ML SDV ONE
[2018-06-23 12:04] LABS: INTERNATIONAL RATION (INR) 1.16; PROTHROMBIN TIME 15.4 SEC (11.4-15.4)
--- NOTE | 2018-06-28 10:39 | WOMENS IMAGING REPORT ---
EXAM DESCRIPTION: U/S BREAST BX; RIGHT DIG DX MAMMO NO CHG COMPLETED DATE/TIME: 06/27/2018 8:53 am REASON FOR STUDY: RIGHT BREAST LUMP;N63.12; N63.12 N63.10 UNSPECIFIED LUMP IN THE RIGHT BREAST, UNS PECIFIED GENOVEVA; I48.2 CHRONIC ATRIAL FIBRILLATION I48.2 CHRONIC ATRIAL FIBRILLATION; N63.11 UNSPECIF IED LUMP IN THE RIGHT BREAST, UPPER OUTER GENOVEVA N63.11 UNSPECIFIED LUMP IN THE RIGHT BREAST, UPPER OUT ER GENOVEVA; N63.12 UNSPECIFIED LUMP IN THE RIGHT BREAST, UPPER INNER GENOVEVA COMPARISON: MAMMOGRAMS 10/05/2017, 05/31/2018 BREAST ULTRASOUND 10/05/2017, 05/31/2018 TECHNIQUE: The procedure was discussed with the patient and the patient agreed to proceed. The patient was scanned and the area of interest in the 12 to 1 o'clock position 5 to 6 cm from the n ipple of the right breast was localized. This correlates with the area of concern on prior imaging s tudies. This area was targeted for ultrasound-guided core biopsy. After sterile skin prep and 3 mL local lidocaine 1% for skin and deep tissue anesthesia, a 14 gauge c oaxial core biopsy needle was used to obtain several cores of tissue from the lesion. Under ultrasou nd guidance, a ribbon clip was placed in the areas sampled. There were no immediate post-procedure c omplications. MAMMOGRAM: Post-procedure two view mammogram was acquired in the digital mammogram suite. The clip wa s in the expected location. No significant hematoma. Pathology yields a diagnosis of benign breast tissue with focal acute and chronic inflammation and ti ssue necrosis. Negative for atypia or malignancy. Pathology is concordant. 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 The pat ient has a thick eschar on the right breast medial to the area sampled today, and has similar skin an d soft tissue changes beginning on the left breast. LIMITATIONS: None. FINDINGS: Ultrasound guided breast biopsy as described above. POST PROCEDURE MAMMOGRAMS FOR MARKER PLACEMENT: Yes IMPRESSION: ULTRASOUND-GUIDED CORE BIOPSY OF THE RIGHT BREAST YIELDS A DIAGNOSIS OF INFLAMMATION AND FAT NECROSIS. 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 Pantoja Patient medication list reviewed: Yes- Quality ID# [id number]:Eligible professional attests to documenting i n the medical record they obtained, updated, or reviewed the patient's current medications. TECHNICAL DOCUMENTATION: JOB ID: [id number] [employer]- All Rights Reserved Reading location - IP/workstation name: [email or web address]
== END ==
LOC: WI 12:36
PROVIDERS: ATTEND Surgery
DX: I48.2 Chronic atrial fibrillation (principal); N63.11 Unspecified lump in the right breast, upper outer quadrant; N63.12 Unspecified lump in the right breast, upper inner quadrant; Z79.01 Long term (current) use of anticoagulants
CPT/HCPCS: 36415; 85610; 88305 ×2; 19083; J3490

== ENCOUNTER → 2018-12-21 | Outpatient (CLI) | payer MEDICARE, MEDICAID ==
[2018-12-21 14:53] LABS: PROTHROMBIN TIME 17.9 SEC (11.4-15.4)
== END ==
LOC: OD 13:01
PROVIDERS: ATTEND Internal Medicine Cardiovascular Disease
DX: I48.1 Persistent atrial fibrillation (principal)
CPT/HCPCS: 36415; 85610

== ENCOUNTER → 2019-03-05 | Outpatient (CLI) | payer MEDICARE, MEDICAID ==
--- NOTE | 2019-03-05 16:28 | RADIOLOGY REPORT (SQ) ---
EXAM DESCRIPTION: U/S EXTREMITY NONVASCULAR LTD COMPLETED DATE/TIME: 03/05/2019 3:57 pm REASON FOR STUDY: R22.32 LOCALIZED SWELLING, MASS AND LUMP, LEFT UPPER LIMB R22.32 LOCALIZED SWELLI NG, MASS AND LUMP, LEFT UPPER LIMB COMPARISON: None. TECHNIQUE: Dynamic and static grayscale images acquired of the localized site of clinical concern an d recorded on PACS. Additional selected color Doppler and spectral images recorded. SITE OF CONCERN: Left wrist palpable lump. LIMITATIONS: None. FINDINGS: The palpable area in the left wrist corresponds with an anechoic cyst measuring 8 mm. Thi s has smooth margins with minimal internal echoes. There is distal acoustic enhancement. IMPRESSION: ANECHOIC CYST CORRESPONDING WITH THE PALPABLE FINDING. THIS IS MOST LIKELY A GANGLION C YST. TECHNICAL DOCUMENTATION: JOB ID: [id number] [employer]- All Rights Reserved Reading location - IP/workstation name: [email or web address]
== END ==
LOC: RAD 15:35
PROVIDERS: ATTEND Physician Assistant Medical
DX: M67.432 Ganglion, left wrist (principal)
CPT/HCPCS: 76882